=== PATIENT | male | born 1985 | race Hispanic/Latino ===

== ENCOUNTER 2020-11-09 12:40 | Emergency (ER) | payer SELFPAY ==
--- OUTSIDE RECORDS SUMMARY | 2020-11-09 12:43 | XMS REPORT | Continuity of Care Document ---
:1985 Author Organization [facility] t Address [address] [place] [address] Care Team Providers Name Role Phone Unavailable Unavailable Unavailable Problems Condition Condition Condition Status Onset Resolution Last Treating Co mments Source Name Details Category Date Date Treatment Clinician Date Orbital Orbital Disease Active [place] wall wall 08-04 Health fracture fracture 00:00: 00 Allergies, Adverse Reactions, Alerts This patient has no known allergies or adverse reactions. Social History Social Habit Start Date Stop Date Quantity Comments Source Sex Assigned At [birth year] Patrick He alth 00:00:00 00:00:00 Medications This patient has no known medications. Procedures This patient has no known procedures. Plan of Care Planned Activity Planned Date Details Comments Source Future Scheduled Test 2020-12-02 00:00:00 IMM Influenza [facility] Seasonal Oct to May (>/= 19 yrs) [code = IMM Influenza Seasonal Oct to May (>/= 19 yrs)] Future Scheduled Test 2020-12-02 00:00:00 IMM Influenza [facility] Seasonal Oct to May (>/= 19 yrs) [code = IMM Influenza Seasonal Oct to May (>/= 19 yrs)] Future Scheduled Test 1998 00:00:00 COVID-19 Vaccine (1) [facility] [code = COVID-19 Vaccine (1)] Future Scheduled Test 1998 00:00:00 COVID-19 Vaccine (1) [facility] [code = COVID-19 Vaccine (1)] Results This patient has no known results.
--- NOTE | 2020-11-09 13:33 | ER ---
Nurse's Notes [facility] Name: Keven Silver Age: 35 yrs Sex: Male : 1985 Arrival Date: 11/09/2020 Time: 12:44 Bed 9 Private MD: Diagnosis: Cutaneous abscess of neck Presentation: 11/09 12:50 Chief complaint: Patient states: i have a cyst for 2 weeks now on my LEFT side of my tw2 neck. They gave me antibiiotics called Doxycycline and I have one more pill left. They just looked at it in [place]. I feel like it might have gotten a little bit smaller but it is draining. Coronavirus screen: At this time, the client does not indicate any symptoms associated with coronavirus-19. Ebola Screen: Patient denies travel to an Ebola-affected area in the 21 days before illness onset. Initial Sepsis Screen: Does the patient meet any 2 criteria? No. Patient's initial sepsis screen is negative. Does the patient have a suspected source of infection? No. Patient's initial sepsis screen is negative. Risk Assessment: Do you want to hurt yourself or someone else? Patient reports no desire to harm self or others. Onset of symptoms was November 09, 2020. 12:50 Method Of Arrival: Ambulatory tw2 12:50 Acuity: EMANI 4 tw2 Triage Assessment: 12:52 General: Appears in no apparent distress. well groomed, Behavior is calm, cooperative, tw2 appropriate for age. Pain: Denies pain. Derm: Abscess located on left side of neck. Historical: - Allergies: 12:52 No Known Allergies; tw2 - Home Meds: 12:52 doxycycline hyclate 50 mg Oral cap 1 cap 2 times per day [Active]; tw2 - PMHx: 12:52 None; tw2 - PSHx: 12:52 None; tw2 - Immunization history:: Client reports having NOT received the Covid vaccine. Last tetanus immunization: unknown. - Social history:: Smoking status: . Screenin:19 Abuse screen: Denies threats or abuse. Nutritional screening: No deficits noted. vg1 Tuberculosis screening: No symptoms or risk factors identified. Fall Risk None identified. Assessment: 13:17 General: Appears in no apparent distress. comfortable, Behavior is calm, cooperative. vg1 Pain: Complains of pain in Left side of neck Pain currently is 4 out of 10 on a pain scale. Pain began about two weeks. Neuro: Level of Consciousness is awake, alert, obeys commands, Oriented to person, place, time, situation. Cardiovascular: Patient's skin is warm and dry. Respiratory: Airway is patent Respiratory effort is even, unlabored. GI: No signs and/or symptoms were reported involving the gastrointestinal system. : No signs and/or symptoms were reported regarding the genitourinary system. EENT: No signs and/or symptoms were reported regarding the EENT system. Derm: Skin is pink, warm \T\ dry. Abscess located on Left side of neck is dime sized. Musculoskeletal: Circulation, motion, and sensation intact. 13:48 Reassessment: Patient appears in no apparent distress at this time. Patient and/or vg1 family updated on plan of care and expected duration. Pain level reassessed. Patient is alert, oriented x 3, equal unlabored respirations, skin warm/dry/pink. Patient states feeling better. Vital Signs: 12:50 BP 138 / 99; Pulse 83; Resp 18; Temp 98.3(TE); Pulse Ox 100% on R/A; tw2 13:48 BP 130 / 72; Pulse 80; Resp 16; Pulse Ox 100% ; vg1 ED Course: 12:44 Patient arrived in ED. am2 12:52 Triage completed. tw2 12:54 Arm band placed on. tw2 12:58 Marybel Aguilar FNP-C is [facility]. kb 12:58 Ofelia Ann MD is Attending Physician. kb 13:17 Laura Martin, RN is Primary Nurse. vg1 13:20 Patient has correct armband on for positive identification. Bed in low position. Call vg1 light in reach. 13:50 No provider procedures requiring assistance completed. Patient did not have IV access vg1 during this emergency room visit. Administered Medications: No medications were administered Outcome: 13:33 Discharge ordered by . kb 13:50 Discharged to home ambulatory. vg1 13:50 Condition: stable 13:50 Discharge instructions given to patient, Instructed on discharge instructions, follow up and referral plans. medication usage, Demonstrated understanding of instructions, follow-up care, medications, Prescriptions given X 1. 13:51 Patient left the ED. vg1 Signatures: Marybel Aguilar FNP-C FNP-JagVioleta Ridley, RN RN tw2 Radha Awan am2 Laura Martin, RN RN vg1
--- NOTE | 2020-11-09 13:33 | EDPHYS ---
Physician Documentation [facility] Name: Keven Silver Age: 35 yrs Sex: Male : 1985 Arrival Date: 11/09/2020 Time: 12:44 Bed 9 Private MD: ED Physician Ofelia Ann HPI: 11/09 16:35 This 35 yrs old Male presents to ER via Ambulatory with complaints of Cyst. kb 16:35 The patient presents with an abscess of the left lateral aspect of neck. Description: kb erythematous, swollen. Onset: The symptoms/episode began/occurred 2 week(s) ago. Possible cause(s): unknown. Associated signs and symptoms: Pertinent positives: drainage, erythema, swelling. Modifying factors: the symptoms are alleviated by nothing, the symptoms are aggravated by pressure. Severity of symptoms: At their worst the symptoms were moderate, in the emergency department the symptoms are unchanged. The patient has not experienced similar symptoms in the past. The patient has been recently seen by a physician: the ER physician, out of Town. Pt reports abscess to neck that started about 2 weeks ago. Went to [place] [facility] and was given doxycycline, but it hasn't gotten better. States he has one pill left. Historical: - Allergies: 12:52 No Known Allergies; tw2 - Home Meds: 12:52 doxycycline hyclate 50 mg Oral cap 1 cap 2 times per day [Active]; tw2 - PMHx: 12:52 None; tw2 - PSHx: 12:52 None; tw2 - Immunization history:: Client reports having NOT received the Covid vaccine. Last tetanus immunization: unknown. - Social history:: Smoking status: . ROS: 16:34 Constitutional: Negative for fever, chills, and weight loss. kb 16:34 Skin: Positive for abscess, of the left lateral aspect of neck. 16:34 All other systems are negative. Exam: 16:34 Constitutional: This is a well developed, well nourished patient who is awake, alert, kb and in no acute distress. Head/Face: Normocephalic, atraumatic. ENT: Moist Mucous membranes Respiratory: Respirations even and unlabored. No increased work of breathing, no retractions or nasal flaring. MS/ Extremity: Pulses equal, no cyanosis. Neurovascular intact. Full, normal range of motion. Neuro: Awake and alert, GCS 15, oriented to person, place, time, and situation. Moves all extremities. Normal gait. Psych: Awake, alert, with orientation to person, place and time. Behavior, mood, and affect are within normal limits. 16:34 Skin: abscess, that is moderate sized, of the left lateral aspect of neck, with drainage, with fluctuance. Vital Signs: 12:50 BP 138 / 99; Pulse 83; Resp 18; Temp 98.3(TE); Pulse Ox 100% on R/A; tw2 13:48 BP 130 / 72; Pulse 80; Resp 16; Pulse Ox 100% ; vg1 Procedures: 13:28 I \T\ D: Incision and drainage was performed for an abscess of the left left lateral kb aspect of neck. I \T\ D: Prepped with Betadine, Anesthetized with 2 ml's 1% Lidocaine. Incised with #11 blade. Drained moderate amount purulent fluid. Dressing: sterile 4x4 gauze, the patient tolerated the procedure well. MDM: 12:58 Patient medically screened. kb 13:30 Data reviewed: vital signs, nurses notes. Data interpreted: Pulse oximetry: on room air kb is 100 %. Interpretation: normal. Counseling: I had a detailed discussion with the patient and/or guardian regarding: the historical points, exam findings, and any diagnostic results supporting the discharge/admit diagnosis, the need for outpatient follow up, a general surgeon, to return to the emergency department if symptoms worsen or persist or if there are any questions or concerns that arise at home. 11/09 13:14 Order name: I\T\D Setup; Complete Time: 13:17 kb Administered Medications: No medications were administered Disposition: 11/10 07:01 Co-signature as Attending Physician, Ofelia Ann MD I agree with the assessment and sp3 plan of care. Disposition Summary: 11/09/20 13:33 Discharge Ordered Location: Home kb Condition: Stable kb Diagnosis - Cutaneous abscess of neck kb Followup: kb - With: Emergency Department - When: As needed - Reason: Worsening of condition Followup: kb - With: Private Physician - When: 2 - 3 days - Reason: Recheck today's complaints, Continuance of care, Re-evaluation by your physician Discharge Instructions: - Discharge Summary Sheet kb - Skin Abscess, [id number] kb - Incision and Drainage, Care After kb Forms: - Medication Reconciliation Form kb - Thank You Letter kb - Antibiotic Education kb - Prescription Opioid Use kb - Work release form vg1 Prescriptions: - Bactrim DS 800-160 mg Oral Tablet - take 1 tablet by ORAL route every 12 hours for 10 days; 20 tablet; Refills: 0, kb Product Selection Permitted Signatures: Marybel Aguilar, KAREN ALEMAN-Violeta Harley RN RN tw2 Ofelia Ann MD MD sp3 Corrections: (The following items were deleted from the chart) 11/09 13:31 13:28 I \T\ D: Prepped with Betadine, Anesthetized with 2 ml's 1% Lidocaine. Incised with kb #11 blade. Drained moderate amount purulent fluid. Dressing: sterile 4x4 gauze, the patient tolerated the procedure well, kb
[2020-11-09] MEDS ORDERED: LIDOCAINE 1% MPF 5 ML VIAL ONE (13:40)
[2020-11-09 13:55] VITALS: TEMP 98.3; O2SAT 100
[2020-11-09 13:56] VITALS: BP 130/72
== END 2020-11-09 13:51 | disposition home or self-care (01) ==
LOC: ER 12:40
PROC: 0H94XZZ Drainage of Neck Skin, External Approach (ICD-10-PCS; principal; 2020-11-09)
DX: L02.11 Cutaneous abscess of neck (principal)
CPT/HCPCS: 99282